=== PATIENT | female | born 1970 | race Caucasian/White ===

== ENCOUNTER 2016-11-15 17:07 | Emergency (ER) | payer OTHER, BC ==
[~2016-11-15] VITALS: Ht 162.6 cm; Wt 115.0 kg
[2016-11-15 20:13] VITALS: BP 143/70
== END 2016-11-15 20:17 | disposition home or self-care (01) ==
LOC: EME 17:07
DX: S63.501A Unspecified sprain of right wrist, initial encounter (principal); M25.562 Pain in left knee; V43.62XA Car passenger injured in collision with other type car in traffic accident, initial encounter; Y92.410 Unspecified street and highway as the place of occurrence of the external cause
CPT/HCPCS: 73110; 99281; 99285